=== PATIENT | male | born 1980 | race Caucasian/White ===

== ENCOUNTER 2024-02-07 20:53 | Emergency (ER) | payer SELFPAY ==
[~2024-02-07] VITALS: Ht 165.1 cm; Wt 54.4 kg
[2024-02-07 20:54] VITALS: BP 139/82; PULSE 73; RESP 18; TEMP 98.1; O2SAT 96
== END 2024-02-07 21:35 ==
LOC: MED 20:53
DX: F16.10 Hallucinogen abuse, uncomplicated (principal); H55.00 Unspecified nystagmus
CPT/HCPCS: 99283